=== PATIENT | female | born 2000 | race Caucasian/White ===

== ENCOUNTER 2021-02-21 18:41 | Inpatient (IN) ==
[2021-02-21 19:40] LABS: Basophils # (auto) 0.03 K/uL (0-0.2); Basophils % (auto) 0.4 %; Eosinophils # (auto) 0.13 K/uL (0-0.5); Eosinophils % (auto) 1.6 %; Hematocrit (blood only) 34.8 % (37-47); Hemoglobin 10.6 g/dL (12.0-16.0); Immature Granulocytes # (auto) 0.01 K/uL (0.00-0.02); Immature Granulocytes % (auto) 0.1 %; Lymphocytes # (auto) 2.74 K/uL (1.2-3.4); Lymphocytes % (auto) 34.3 %; Mean Corpuscular Hemoglobin 22.6 pg (25-34); Mean Corpuscular Hgb Conc 30.5 g/dL (32-36); Mean Corpuscular Volume 74.4 fL (80-100); Mean Platelet Volume 8.5 fL (7.4-10.4); Monocytes # (auto) 0.48 K/uL (0.11-0.59); Neutrophils % (auto) 57.6 %; Platelet Count 484 K/uL (130-400); RDW Coefficient of Variation 18.3 % (11.5-14.5); RDW Standard Deviation 50.1 fL (36.4-46.3); Red Blood Count 4.68 M/uL (4.2-5.4); White Blood Count 7.99 K/uL (4.8-10.8)
--- NOTE | 2021-02-21 20:18 | Emergency Department Note ---
History of Present Illness General Chief complaint: Mental Health Evaluation Stated complaint: DEPRESSION, SUICIDAL THOUGHTS Time Seen by Provider: 02/21/21 19:50 Source: patient Mode of arrival: ambulatory Limitations: no limitations History of Present Illness Provider complaint: Mental health evaluation This is a 20-year-old female presents emergency department for mental health evaluation. Patient states recent increased suicidal ideation, no definitive plan. Patient has a prior history of self-harm and SI. Patient denies hallucinations. Patient feels her other chronic health problems are stable including Galina's, migraines, and JRA. No recent change in medications. No recent illness. Pt seen during a time of high acuity and national emergency pandemic while wearing PPE. Home Medications Medication Instructions Recorded Confirmed Type amitriptyline 25 mg PO DAILY PRN 02/22/21 02/22/21 History etanercept 50 mg/mL (1 mL) 50 mg SUBCUT WK 02/22/21 02/22/21 History subcutaneous pen injector (Enbrel SureClick) levothyroxine 88 mcg tablet 88 mcg DAILY 02/22/21 02/22/21 History Allergies Allergy/AdvReac Type Severity Reaction Status Date / Time No Known Allergies Allergy Unverified 02/22/21 02:34 Past Med/Surg History Social History Smoking Status: Current every day smoker Tobacco Type: Cigarettes Feels Safe at Home: Yes Review of Systems A total of 10 systems reviewed and were otherwise negative All systems reviewed & are unremarkable except as noted in HPI & below Physical Exam Vital Signs Vital Signs - 24 hr 02/21/21 18:50 02/21/21 23:16 Temperature 36.9 C Temperature Source Temporal Artery Scan Pulse Rate 70 Pulse Rate [Finger] 56 L Respiratory Rate 16 Respiratory Effort / Characteristics Non-Labored Respiratory Depth Normal Blood Pressure 118/84 Blood Pressure [Left Arm] 104/57 L Blood Pressure Mean 95 Blood Pressure Mean [Left Arm] 72 Pulse Oximetry 99 99 Oxygen Delivery Method Room Air Room Air Sepsis Recent Fever Within 48 Hours No Sepsis New/Unexplained Change in Mental Status No Sepsis Action Taken by Nursing No Action Required GENERAL: alert, well appearing, well nourished, no distress, non-toxic EYE EXAM: normal conjunctiva, PERRL and EOM's grossly intact OROPHARYNX: no exudate, no erythema, lips, buccal mucosa, and tongue normal and mucous membranes are moist NECK: supple, no nuchal rigidity, no adenopathy, non-tender LUNGS: Clear to auscultation. Normal chest wall mechanics, no w/r/r HEART: no murmurs, S1 normal and S2 normal ABDOMEN: abdomen soft, non-tender, normo-active bowel sounds, no masses, no rebound or guarding. BACK: Back is symmetrical on inspection and there is no deformity, no midline tenderness, no CVA tenderness. SKIN: no rashes and no bruising UPPER EXTREMITIES: upper extremities are grossly normal. FROM, nml pulses b/l. LOWER EXTREMITIES: No pitting edema. FROM, nml pulses b/l. NEURO EXAM: Normal sensorium, cranial nerves II-XII grossly intact, normal speech, no gross weakness of arms, no gross weakness of legs. Gross sensation intact. Course Course 0032: Patient was seen and evaluated by Sarah wrapper caser for mental health evaluation. Patient agreeable with inpatient treatment at this time. Patient referred to [facility] pending Covid and urine drug screen. 0235: Patient evaluated by [facility] and accepted there. 201 signed by me. Medical Decision Making Differential Diagnosis Differential diagnoses considered include mood disorder, infection, hypoglycemia, electrolyte abnormalities, cardiac sources, intracerebral event, toxicologic, neurologic, as well as others. Medical Records Attestation: I reviewed the patient's medical records. Home Medications Current Medication List: was personally reviewed by me Laboratory Data Attestation: I reviewed the patient's lab results. Result diagrams: 02/21/21 19:20 02/21/21 19:20 Lab Results 02/21/21 02/21/21 02/21/21 Range/Units 19:20 19:20 19:20 WBC 7.99 (4.8-10.8) K/uL RBC 4.68 (4.2-5.4) M/uL Hgb 10.6 L (12.0-16.0) g/dL Hct 34.8 L (37-47) % MCV 74.4 L (80-100) fL MCH 22.6 L (25-34) pg MCHC 30.5 L (32-36) g/dL RDW Std Deviation 50.1 H (36.4-46.3) fL RDW Coeff of Abigail 18.3 H (11.5-14.5) % Plt Count 484 H (130-400) K/uL MPV 8.5 (7.4-10.4) fL Immature Gran % (Auto) 0.1 % Neut % (Auto) 57.6 % Lymph % (Auto) 34.3 % Winn % (Auto) 6.0 % Eos % (Auto) 1.6 % Baso % (Auto) 0.4 % Neut # (Auto) 4.60 (1.4-6.5) K/uL Lymph # (Auto) 2.74 (1.2-3.4) K/uL Winn # (Auto) 0.48 (0.11-0.59) K/uL Eos # (Auto) 0.13 (0-0.5) K/uL Baso # (Auto) 0.03 (0-0.2) K/uL Immature Gran # (Auto) 0.01 (0.00-0.02) K/uL Hypochromasia Present Microcytosis Present Ovalocytes 1+ Sodium 139 (136-145) mmol/L Potassium 3.7 (3.5-5.1) mmol/L Chloride 107 (98-107) mmol/L Carbon Dioxide 26 (21-32) mmol/L Anion Gap 7.0 (3-11) BUN 7 (7-18) mg/dl Creatinine 0.73 (0.6-1.2) mg/dl Est Cr Clr Drug Dosing 123.0 ml/min Est GFR ( Amer) 136.5 ml/min Est GFR (Non-Af Amer) 117.7 ml/min BUN/Creatinine Ratio 9.6 L (10-20) Glucose 85 (70-99) mg/dl Calcium 9.0 (8.5-10.1) mg/dl Total Bilirubin 0.7 (0.2-1) mg/dl AST 22 (15-37) U/L ALT 17 (12-78) U/L Alkaline Phosphatase 64 (45-117) U/L Total Protein 8.0 (6.4-8.2) gm/dl Albumin 4.0 (3.4-5.0) gm/dl Globulin 4.0 (2.5-4.0) gm/dl Albumin/Globulin Ratio 1.0 (0.9-2) TSH 0.320 (0.300-4.500) uIu/ml Urine Color Urine Appearance (Clear) Urine pH (4.5-7.5) Ur Specific Dola (1.000-1.030) Urine Protein (Negative) Urine Glucose (UA) (Negative) Urine Ketones (Negative) Urine Blood (Negative) Urine Nitrite (Negative) Urine Bilirubin (Negative) Urine Urobilinogen (Negative) Ur Leukocyte Esterase (Negative) Urine WBC (Auto) (0-5) /hpf Urine RBC (Auto) (0-4) /hpf U Hyaline Cast (Auto) (0-5) /lpf U Epithel Cells (Auto) (0-5) /lpf Urine Bacteria (Auto) (Negative) POC Ur Test (NEG) Salicylates < 1.7 L (2.8-20) mg/dl Urine Opiates Screen (Neg) Ur Methadone, Qual (Neg) Acetaminophen < 2 L (10-30) ug/ml Urine Barbiturates (Neg) Ur Phencyclidine (PCP) (Neg) U Amphetamin/Meth Scrn (Neg) MDMA (Ecstasy) Screen (Neg) U Benzodiazepines Scrn (Neg) Ur Cocaine Metabolite (Neg) U Marijuana (THC) Screen (Neg) Ethyl Alcohol mg/dL (0-3) mg/dl COVID-19 Eval Order SARS-CoV-2 (PCR) (Negative) 02/21/21 02/22/21 02/22/21 Range/Units 19:20 Unknown Unknown WBC (4.8-10.8) K/uL RBC (4.2-5.4) M/uL Hgb (12.0-16.0) g/dL Hct (37-47) % MCV (80-100) fL MCH (25-34) pg MCHC (32-36) g/dL RDW Std Deviation (36.4-46.3) fL RDW Coeff of Abigail (11.5-14.5) % Plt Count (130-400) K/uL MPV (7.4-10.4) fL Immature Gran % (Auto) % Neut % (Auto) % Lymph % (Auto) % Winn % (Auto) % Eos % (Auto) % Baso % (Auto) % Neut # (Auto) (1.4-6.5) K/uL Lymph # (Auto) (1.2-3.4) K/uL Winn # (Auto) (0.11-0.59) K/uL Eos # (Auto) (0-0.5) K/uL Baso # (Auto) (0-0.2) K/uL Immature Gran # (Auto) (0.00-0.02) K/uL Hypochromasia Microcytosis Ovalocytes Sodium (136-145) mmol/L Potassium (3.5-5.1) mmol/L Chloride (98-107) mmol/L Carbon Dioxide (21-32) mmol/L Anion Gap (3-11) BUN (7-18) mg/dl Creatinine (0.6-1.2) mg/dl Est Cr Clr Drug Dosing ml/min Est GFR ( Amer) ml/min Est GFR (Non-Af Amer) ml/min BUN/Creatinine Ratio (10-20) Glucose (70-99) mg/dl Calcium (8.5-10.1) mg/dl Total Bilirubin (0.2-1) mg/dl AST (15-37) U/L ALT (12-78) U/L Alkaline Phosphatase (45-117) U/L Total Protein (6.4-8.2) gm/dl Albumin (3.4-5.0) gm/dl Globulin (2.5-4.0) gm/dl Albumin/Globulin Ratio (0.9-2) TSH (0.300-4.500) uIu/ml Urine Color Yellow Urine Appearance Clear (Clear) Urine pH 5.5 (4.5-7.5) Ur Specific Dola 1.010 (1.000-1.030) Urine Protein Negative (Negative) Urine Glucose (UA) Negative (Negative) Urine Ketones Negative (Negative) Urine Blood Negative (Negative) Urine Nitrite Negative (Negative) Urine Bilirubin Negative (Negative) Urine Urobilinogen Negative (Negative) Ur Leukocyte Esterase Trace H (Negative) Urine WBC (Auto) 5-10 H (0-5) /hpf Urine RBC (Auto) 0-4 (0-4) /hpf U Hyaline Cast (Auto) 1-5 (0-5) /lpf U Epithel Cells (Auto) 20-30 H (0-5) /lpf Urine Bacteria (Auto) 1+ H (Negative) POC Ur Test (NEG) Salicylates (2.8-20) mg/dl Urine Opiates Screen Neg (Neg) Ur Methadone, Qual Neg (Neg) Acetaminophen (10-30) ug/ml Urine Barbiturates Neg (Neg) Ur Phencyclidine (PCP) Neg (Neg) U Amphetamin/Meth Scrn Neg (Neg) MDMA (Ecstasy) Screen Neg (Neg) U Benzodiazepines Scrn Neg (Neg) Ur Cocaine Metabolite Neg (Neg) U Marijuana (THC) Screen Pos H (Neg) Ethyl Alcohol mg/dL < 3.0 (0-3) mg/dl COVID-19 Eval Order SARS-CoV-2 (PCR) (Negative) 02/22/21 02/22/21 02/22/21 Range/Units Unknown Unknown Unknown WBC (4.8-10.8) K/uL RBC (4.2-5.4) M/uL Hgb (12.0-16.0) g/dL Hct (37-47) % MCV (80-100) fL MCH (25-34) pg MCHC (32-36) g/dL RDW Std Deviation (36.4-46.3) fL RDW Coeff of Abigail (11.5-14.5) % Plt Count (130-400) K/uL MPV (7.4-10.4) fL Immature Gran % (Auto) % Neut % (Auto) % Lymph % (Auto) % Winn % (Auto) % Eos % (Auto) % Baso % (Auto) % Neut # (Auto) (1.4-6.5) K/uL Lymph # (Auto) (1.2-3.4) K/uL Winn # (Auto) (0.11-0.59) K/uL Eos # (Auto) (0-0.5) K/uL Baso # (Auto) (0-0.2) K/uL Immature Gran # (Auto) (0.00-0.02) K/uL Hypochromasia Microcytosis Ovalocytes Sodium (136-145) mmol/L Potassium (3.5-5.1) mmol/L Chloride (98-107) mmol/L Carbon Dioxide (21-32) mmol/L Anion Gap (3-11) BUN (7-18) mg/dl Creatinine (0.6-1.2) mg/dl Est Cr Clr Drug Dosing ml/min Est GFR ( Amer) ml/min Est GFR (Non-Af Amer) ml/min BUN/Creatinine Ratio (10-20) Glucose (70-99) mg/dl Calcium (8.5-10.1) mg/dl Total Bilirubin (0.2-1) mg/dl AST (15-37) U/L ALT (12-78) U/L Alkaline Phosphatase (45-117) U/L Total Protein (6.4-8.2) gm/dl Albumin (3.4-5.0) gm/dl Globulin (2.5-4.0) gm/dl Albumin/Globulin Ratio (0.9-2) TSH (0.300-4.500) uIu/ml Urine Color Urine Appearance (Clear) Urine pH (4.5-7.5) Ur Specific Dola (1.000-1.030) Urine Protein (Negative) Urine Glucose (UA) (Negative) Urine Ketones (Negative) Urine Blood (Negative) Urine Nitrite (Negative) Urine Bilirubin (Negative) Urine Urobilinogen (Negative) Ur Leukocyte Esterase (Negative) Urine WBC (Auto) (0-5) /hpf Urine RBC (Auto) (0-4) /hpf U Hyaline Cast (Auto) (0-5) /lpf U Epithel Cells (Auto) (0-5) /lpf Urine Bacteria (Auto) (Negative) POC Ur Test NEG (NEG) Salicylates (2.8-20) mg/dl Urine Opiates Screen (Neg) Ur Methadone, Qual (Neg) Acetaminophen (10-30) ug/ml Urine Barbiturates (Neg) Ur Phencyclidine (PCP) (Neg) U Amphetamin/Meth Scrn (Neg) MDMA (Ecstasy) Screen (Neg) U Benzodiazepines Scrn (Neg) Ur Cocaine Metabolite (Neg) U Marijuana (THC) Screen (Neg) Ethyl Alcohol mg/dL (0-3) mg/dl COVID-19 Eval Order Covid19 at [facility] SARS-CoV-2 (PCR) NEGATIVE (Negative) MDM Narrative Patient presents for mental health evaluation. Patient afebrile and hemodynamically stable. Patient admits to depression duration. Labs reassu ring, anemia was noted, however no prior results in EMR for comparison. No orthostatic symptoms and patient without active bleeding. I suspect likely chronic and can be followed up as an outpatient. Patient seen and evaluated by case management, referred to [facility] Patient [facility] for additional inpatient evaluation. Patient signed in voluntarily. Patient admits to thoughts of self-harm and suicidal ideation although no definitive plan at this time. I do feel patient would benefit from inpatient treatment at this time. Impression & Plan Depression, Suicidal ideation, Anemia Discharge Plan Visit Data Chief Complaint: Mental Health Evaluation Stated Complaint: DEPRESSION, SUICIDAL THOUGHTS ED Provider: Keshia Mann Discharge Problem: Depression, Suicidal ideation, Anemia Patient Disposition: Admitted As Inpatient Forms Stand Alone Forms: My [facility], Suicide Prevention Resources Prescriptions Prescriptions: No Action levothyroxine 88 mcg tablet 88 mcg DAILY RF: 0 Enbrel SureClick 50 mg/mL (1 mL) pen injector 50 mg SUBCUT WK RF: 0 amitriptyline 25 MG tablet 25 mg PO DAILY PRN (Reason: Migraine Headache) RF: 0 Referrals Referrals: PCP,NO [Physician] - Discharge Problem: Depression Qualifiers: Depression Type: unspecified Qualified Code(s): F32.A - Depression, unspecified Anemia Qualifiers: Anemia type: unspecified type Qualified Code(s): D64.9 - Anemia, unspecified
[2021-02-21 20:28] LABS: Acetaminophen < 2 ug/ml (10-30); BUN Creatinine Ratio 9.6 (10-20); Est GFR (African American) 136.5 ml/min; Est GFR (Non-African American) 117.7 ml/min; Potassium 3.7 mmol/L (3.5-5.1); Salicylate < 1.7 mg/dl (2.8-20)
[2021-02-21 20:38] LABS: Bilirubin,Total 0.7 mg/dl (0.2-1); Thyroid Stimulating Hormone 0.32 uIu/ml (0.300-4.500)
[2021-02-21 20:47] LABS: Hypochromasia Present; Microcytosis Present; Ovalocytes 1+
[2021-02-22 00:43] LABS: Appearance Urine Clear (Clear); Bacteria Urine Automated 1+ (Negative); Bilirubin Urine Negative (Negative); Blood Urine Negative (Negative); Color Urine Yellow; Epithelial Cell Urine Auto 20-30 /lpf (0-5); Glucose Urine UA Negative (Negative); Ketones Urine Negative (Negative); Leukocyte Esterase Urine Trace (Negative); Nitrite Urine Negative (Negative); Protein Urine Negative (Negative); RBC Urine Automated 0-4 /hpf (0-4); Urobilinogen Urine Negative (Negative); pH Urine 5.5 (4.5-7.5)
[2021-02-22 01:06] LABS: Amphetamines+Metham, Urine Neg (Neg); Barbiturates, Urine Neg (Neg); Benzodiazepine, Urine Neg (Neg); Cocaine, Urine Neg (Neg); MDMA (Ecstacy), Urine Neg (Neg); Methadone, Urine Neg (Neg); Opiate, Urine Neg (Neg); Phencyclidine, Urine Neg (Neg)
[2021-02-22] MEDS ORDERED: BISMUTH SUBSALICYLATE LIQD 236 ML PO PRN (02:34)
[2021-02-22] MEDS ORDERED: SODIUM CHLORIDE 0.65% NA SOLN 45 ML (OCEAN) PRN (02:34)
[2021-02-22] MEDS ORDERED: hydrOXYzine HCl 25 MG TAB PO PRN (02:34)
[2021-02-22] MEDS ORDERED: MAGNESIUM HYDROXIDE SUSP 30 ML UDC PO PRN (02:34)
[2021-02-22] MEDS ORDERED: ALUMINUM/MAGNESIUM SUSP 30 ML UDC PO PRN (02:34)
[2021-02-22] MEDS ORDERED: ACETAMINOPHEN 325 MG TAB PO PRN (02:34)
[2021-02-22] MEDS: LEVOTHYROXINE SODIUM 88 MCG TABLET PO SCH (08:01)
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
[2021-02-22] MEDS ORDERED: AMITRIPTYLINE HCL 25 MG TAB PO PRN (12:54)
[2021-02-22] MEDS ORDERED: LEVOTHYROXINE SODIUM 88 MCG TABLET PO SCH (13:00)
[2021-02-22] MEDS ORDERED: NEOMYCIN/POLYMYX/BACITR OINT 15 GM TUBE EXT PRN (15:51)
[2021-02-22] MEDS: hydrOXYzine HCl 25 MG TAB PO PRN (20:04)
[2021-02-23] MEDS: LEVOTHYROXINE SODIUM 88 MCG TABLET PO SCH (08:33)
[2021-02-23] MEDS: FLUoxetine HCL 10 MG CAP PO SCH (14:05)
--- NOTE | 2021-02-23 15:24 | Psychiatric Progress Note ---
Date of Service February 23, 2021 Impression / Recommendations Impression Ese is a 20-year-old female with a remote hx of SIB presented to ED with 2 weeks of worsening mood and rather persistent SI. She signed a 72 hour notice upon arrival to the unit. 02/23/21: remains depressive, refusing to rescind 72 hour notice (1) Depression: (2) Suicidal ideation: (3) Anemia: 02/23/21: Needs family meeting and safety planning. Started Prozac 10 mg po daily. 02/22/21: The patient was admitted to the [facility] ([facility] mental health unit) on q15 min checks (behavioral with suicide precautions) for safety. The patient will participate in group, recreational, and milieu therapies and will be offered additional individual and family sessions as clinically appropriate. Risks/benefits/alternatives reviewed re: antidepressants for the treatment of depression and/or anxiety. Discussion included but was not limited to FDA warnings re: suicidality in adolescents and young adults. The patient is considering a trial of Prozac. Reviewed risk of serotonin syndrome in combo with TCA and she again confirms she uses that medication as a prn only. Inventory Assets Strengths: traditionally good student, relationship with sister, brother is local Needs: outpatient providers, meeting with father Risk Factors Assessment : Yes Do You Have Access To A Gun?: No Health Problems: Yes Substance Use Disorders: No Previous Attempt: No Family History of Suicide: No Previous Psychiatric Hospitalization: No Protective Factors Assessment Employed: No Supportive Family: Yes Interval History Identifying Information ESE GARCIA is a 20-year-old F, [employer] from [facility], has a history of SIB, and was admitted on 02/22/21 02:34 on a 201 voluntary commitment for suicidal ideation. Chief Complaint "so it's just depression, that's all it is?". Review of Systems Sleep Information Total Hours of Sleep: 8.25 Sleep Comments: pt with poor sleep due to late admission. pt on q-15 minute checks Meal Information Percent Meal Consumed - Breakfast: 20 Percent Meal Consumed - Lunch: 20 Percent Meal Consumed - Dinner: 60 Subjective Subjective Patient was seen & assessed and interval progress reviewed with treatment team. Patient does not plan to rescind her 72 hour notice despite appearing quite depressed and tearful. She has spoken with her father and is willing to involve him in a meeting as "I'm not bringing my roommates into this". She is now agreeable to a trial of an SSRI. Physical Exam Psychiatric Orientation: alert and oriented x 3 Apperance: appropriately dressed and appropriately groomed Eye Contact: good eye contact Motor Behavior: no abnormal motor movements Speech: normal rate/rhythm/volume of speech Affect: + depressed affect Mood: + depressed mood Thought Process: goal directed thought process Thought Content: reality based without delusions Suicidal Thoughts: denies suicidal thoughts Homicidal Thoughts: denies homicidal thoughts Hallucinations: no auditory hallucinations and no visual hallucinations Cognition: attention grossly intact and language grossly intact Estimated Intelligence: consistent with education level Insight: + limited insight Judgement: + limited judgement Vital Signs (Past 24 Hours) Last Vital Signs Temp 36.5 C 02/23/21 06:00 Pulse 66 02/23/21 06:32 Resp 16 02/23/21 06:00 BP 95/62 L 02/23/21 06:32 Pulse Ox 99 02/21/21 23:16 Results & Data ([facility]) Current Inpatient Medications Current Inpatient Medications: Current Inpatient Medications Acetaminophen (Acetaminophen 325 Mg Tab) 650 mg PO Q4H PRN PRN Reason: Headache or Minor Fever Stop: 03/24/21 02:33 Al Hydrox/Mg Hydrox/Simethicone (Aluminum/Magnesium Susp 30 Ml Udc) 30 ml PO Q4H PRN PRN Reason: GI Upset Stop: 03/24/21 02:33 Amitriptyline HCl (Amitriptyline Hcl 25 Mg Tab) 25 mg PO DAILY PRN PRN Reason: Migraine Headache Stop: 03/24/21 12:53 Bismuth Subsalicylate (Bismuth Subsalicylate Liqd 236 Ml) 15 ml PO PRN PRN PRN Reason: Loose Stool Stop: 03/24/21 02:33 Fluoxetine HCl (Fluoxetine Hcl 10 Mg Cap) 10 mg PO QAM SHAUNA Stop: 03/25/21 11:59 Last Admin: 02/23/21 14:05 Dose: 10 mg Documented by: Hydroxyzine HCl (Hydroxyzine Hcl 25 Mg Tab) 50 mg PO HSZ PRN PRN Reason: Insomnia Stop: 03/24/21 02:33 Last Admin: 02/22/21 20:04 Dose: 50 mg Documented by: Hydroxyzine HCl (Hydroxyzine Hcl 25 Mg Tab) 25 mg PO Q4H PRN PRN Reason: Anxiety Stop: 03/24/21 02:33 Levothyroxine Sodium (Levothyroxine Sodium 88 Mcg Tablet) 88 mcg PO DAILYBB SHAUNA Stop: 03/24/21 07:59 Last Admin: 02/23/21 08:33 Dose: 88 mcg Documented by: Magnesium Hydroxide (Magnesium Hydroxide Susp 30 Ml Udc) 30 ml PO DAILY PRN PRN Reason: Constipation Stop: 03/24/21 02:33 Neomycin/Polymyxin/Bacitracin (Neomycin/Polymyx/Bacitr Oint 15 Gm Tube) 1 appln EXT BID PRN PRN Reason: affected skin (scratch on arm) Stop: 03/24/21 15:50 Sodium Chloride (Sodium Chloride 0.65% Na Soln 45 Ml ([place])) 1 - 2 sprays NA PRN PRN PRN Reason: Nasal Dryness/Congestion Stop: 03/24/21 02:33 Mental Health & Subst Abuse Tx Therapist Name of Therapist: [facility] The[facility]ist's Time of Therapist Appointment: They emailed you paperwork to complete prior to scheduling an appt Therapy Appointment Comment: [address] [facility], [place] [address] Archival Studies Professor Name of Archival Studies Professor: None Post Discharge Appointments Primary Care Physician Name Of Family Doctor: [facility] - Dr. Pranay Sheppard Primary Care Date of Appointment with PCP: 03/06/21 Time of Appointment with PCP: 5:30 p.m. Provider Appointment Comment: [address] [address] [place] [id number] Other #1: Name of Aftercare Appointment: [facility] Phone Number of Aftercare Appointment: [phone] Date of Aftercare Appointment: 02/26/21 Time of Aftercare Appointment: 2:30 p.m. Aftercare Appointment Comment: [email or web address] #[email or web address]: Name of Aftercare Appointment: [facility] Phone Number of Aftercare Appointment: [phone] Aftercare Appointment Comment: Please follow up if needed for therapy/crisis services Contact Information Discharge Discharge Address: [address] [place] [address] [place] [id number] (1) Depression Depression Type: unspecified Qualified Code(s): F32.A - Depression, unspecified (2) Anemia Anemia type: unspecified type Qualified Code(s): D64.9 - Anemia, unspecified
[2021-02-23] MEDS: hydrOXYzine HCl 25 MG TAB PO PRN ×2 (20:43→21:42)
[2021-02-24] MEDS: LEVOTHYROXINE SODIUM 88 MCG TABLET PO SCH (07:42)
[2021-02-24] MEDS: FLUoxetine HCL 10 MG CAP PO SCH (07:42)
[2021-02-24 08:31] LABS: Marijuana Quant, GCMS Urine 531 ng/mL (<5)
--- NOTE | 2021-02-24 13:25 | Discharge Summary ---
Date of Service February 24, 2021 History of Present Illness The patient was directed to the ED after calling the [facility] Crisis Line for suicidal ideation. She did not report a specific plan in the ED but told CM that she has recurrent thoughts about ending her life, even waking up hopeless and helpless. It has been several years since she cut superficially to relieve stress. Stressors include not doing well in her classes and she hasn't had the energy or interest to go to class in past week. Staying home at the apartment is not a relaxing environment as she has a roommate that monopolizes the space and is quite rude. This is the patient's first semester as main campus having attended [employer] and living in an apartment for 2 years. She reports onset of mood shift 02/07 as her younger sister visited on 02/09/21 from [place] where she is attending school and was recently hospitalized for psychiatric reasons. She has felt more anxious during that time. She denies any hx of erickson or hypomania. Sleep and appetite increased though she denies any history of seasonal mood changes. She denies any intent or plan to harm herself but states that she is very anxious about the suicidal thoughts and how pervasive they are. "I just can't snap out of this." Physical Exam Vital Signs (Past 24 Hours) Last Vital Signs Temp 36.6 C 02/24/21 06:00 Pulse 67 02/24/21 06:33 Resp 14 02/24/21 06:00 BP 96/65 L 02/24/21 06:33 Pulse Ox 99 02/21/21 23:16 See admission H&P and DOD summary. Principal Diagnosis Major Depressive Disorder Psychiatric Data See daily stay summary. In short, safety was maintained and the patient was cooperative with care. Medication changes included initiation of fluoxetine 10mg qd and she tolerated this well. If she continues to tolerate this dose then would recommend titration to 20mg qd in the next 2-4 weeks. After that can increase further to 40mg qd after another 4 weeks if symptoms persist. A family session was held and safety plan was completed prior to discharge. She submitted a 72 hour request which was due to at 02/25 at 3am so discharge was planned for late afternoon on 02/24/21. Ideally she would have remained for a few more days for further titration of fluoxetine and further development of coping skills but it was not felt that she met criteria for conversion to 302 status as she consistently denied SI. Day of Discharge Assessment Today the patient voices readiness for discharge. She is eager to return to school as she feels this is the biggest stressor contributing to her anxiety and depression. Discussed that my recommendation would be that she remains in the hospital for a few more days to further titrate the fluoxetine dose and develop more coping skills but she feels that remaining in the hospital will not help anything and she does not meet criteria for 302 status. She endorses some ongoing low mood but feels that her most significant stressor is school and that getting back to her coursework is what she feels will be most helpful for this. Reviewed that she can always return to the ED or call 911 should SI re-emerge or symptoms worsen again after discharge. She notes some improvement in mood and waylon thoughts to harm self or others. Thoughts remain organized. There is no evidence of psychosis. They agree to take mediations as prescribed and keep follow-up appointments. They are stable for discharge to outpatient level of care. They are not deemed to be at imminent risk of harm to self or others. They are aware of emergency and crisis services. Knows to call 911 or go to nearest emergency care center if in a crisis which cannot be handled as an outpatient. Transition of Care Transition Of Care Record: was reviewed with the patient Advance Directives Advance Directives Information Provided: Yes Advance Directives: No Mental Health Advance Directive: No Living Will: No Power of Surfacer Operator: No Advance Directives Reason:: Declines as Mental Health Visit. Risk Factors Assessment : Yes Do You Have Access To A Gun?: No Health Problems: Yes Substance Use Disorders: No Previous Attempt: No Family History of Suicide: No Previous Psychiatric Hospitalization: No Hopelessness: No Protective Factors Assessment Employed: No Stable Relationships: Yes Supportive Family: Yes Good Rapport with Provider: Yes Discharge Data Lab Results 02/21/21 02/21/21 02/21/21 19:20 19:20 19:20 WBC 7.99 RBC 4.68 Hgb 10.6 L Hct 34.8 L MCV 74.4 L MCH 22.6 L MCHC 30.5 L RDW Std Deviation 50.1 H RDW Coeff of Abigail 18.3 H Plt Count 484 H MPV 8.5 Immature Gran % (Auto) 0.1 Neut % (Auto) 57.6 Lymph % (Auto) 34.3 Yell % (Auto) 6.0 Eos % (Auto) 1.6 Baso % (Auto) 0.4 Neut # (Auto) 4.60 Lymph # (Auto) 2.74 Yell # (Auto) 0.48 Eos # (Auto) 0.13 Baso # (Auto) 0.03 Immature Gran # (Auto) 0.01 Hypochromasia Present Microcytosis Present Ovalocytes 1+ Sodium 139 Potassium 3.7 Chloride 107 Carbon Dioxide 26 Anion Gap 7.0 BUN 7 Creatinine 0.73 Est Cr Clr Drug Dosing 123.0 Est GFR ( Amer) 136.5 Est GFR (Non-Af Amer) 117.7 BUN/Creatinine Ratio 9.6 L Glucose 85 Calcium 9.0 Total Bilirubin 0.7 AST 22 ALT 17 Alkaline Phosphatase 64 Total Protein 8.0 Albumin 4.0 Globulin 4.0 Albumin/Globulin Ratio 1.0 TSH 0.320 Urine Color Urine Appearance Urine pH Ur Specific Teachey Urine Protein Urine Glucose (UA) Urine Ketones Urine Blood Urine Nitrite Urine Bilirubin Urine Urobilinogen Ur Leukocyte Esterase Urine WBC (Auto) Urine RBC (Auto) U Hyaline Cast (Auto) U Epithel Cells (Auto) Urine Bacteria (Auto) POC Ur Test Salicylates < 1.7 L Urine Opiates Screen Ur Methadone, Qual Acetaminophen < 2 L Urine Barbiturates Ur Phencyclidine (PCP) U Amphetamin/Meth Scrn MDMA (Ecstasy) Screen U Benzodiazepines Scrn Ur Cocaine Metabolite U Marijuana (THC) Screen U Marijuana THC Carboxy Drug Screen Comment Ethyl Alcohol mg/dL COVID-19 Eval Order SARS-CoV-2 (PCR) 02/21/21 02/22/21 02/22/21 19:20 Unknown Unknown WBC RBC Hgb Hct MCV MCH MCHC RDW Std Deviation RDW Coeff of Abigail Plt Count MPV Immature Gran % (Auto) Neut % (Auto) Lymph % (Auto) Yell % (Auto) Eos % (Auto) Baso % (Auto) Neut # (Auto) Lymph # (Auto) Yell # (Auto) Eos # (Auto) Baso # (Auto) Immature Gran # (Auto) Hypochromasia Microcytosis Ovalocytes Sodium Potassium Chloride Carbon Dioxide Anion Gap BUN Creatinine Est Cr Clr Drug Dosing Est GFR ( Amer) Est GFR (Non-Af Amer) BUN/Creatinine Ratio Glucose Calcium Total Bilirubin AST ALT Alkaline Phosphatase Total Protein Albumin Globulin Albumin/Globulin Ratio TSH Urine Color Yellow Urine Appearance Clear Urine pH 5.5 Ur Specific Teachey 1.010 Urine Protein Negative Urine Glucose (UA) Negative Urine Ketones Negative Urine Blood Negative Urine Nitrite Negative Urine Bilirubin Negative Urine Urobilinogen Negative Ur Leukocyte Esterase Trace H Urine WBC (Auto) 5-10 H Urine RBC (Auto) 0-4 U Hyaline Cast (Auto) 1-5 U Epithel Cells (Auto) 20-30 H Urine Bacteria (Auto) 1+ H POC Ur Test Salicylates Urine Opiates Screen Neg Ur Methadone, Qual Neg Acetaminophen Urine Barbiturates Neg Ur Phencyclidine (PCP) Neg U Amphetamin/Meth Scrn Neg MDMA (Ecstasy) Screen Neg U Benzodiazepines Scrn Neg Ur Cocaine Metabolite Neg U Marijuana (THC) Screen Pos H U Marijuana THC Carboxy Drug Screen Comment Ethyl Alcohol mg/dL < 3.0 COVID-19 Eval Order SARS-CoV-2 (PCR) 02/22/21 02/22/21 02/22/21 Unknown Unknown Unknown WBC RBC Hgb Hct MCV MCH MCHC RDW Std Deviation RDW Coeff of Abigail Plt Count MPV Immature Gran % (Auto) Neut % (Auto) Lymph % (Auto) Yell % (Auto) Eos % (Auto) Baso % (Auto) Neut # (Auto) Lymph # (Auto) Yell # (Auto) Eos # (Auto) Baso # (Auto) Immature Gran # (Auto) Hypochromasia Microcytosis Ovalocytes Sodium Potassium Chloride Carbon Dioxide Anion Gap BUN Creatinine Est Cr Clr Drug Dosing Est GFR ( Amer) Est GFR (Non-Af Amer) BUN/Creatinine Ratio Glucose Calcium Total Bilirubin AST ALT Alkaline Phosphatase Total Protein Albumin Globulin Albumin/Globulin Ratio TSH Urine Color Urine Appearance Urine pH Ur Specific [place]y Urine Protein Urine Glucose (UA) Urine Ketones Urine Blood Urine Nitrite Urine Bilirubin Urine Urobilinogen Ur Leukocyte Esterase Urine WBC (Auto) Urine RBC (Auto) U Hyaline Cast (Auto) U Epithel Cells (Auto) Urine Bacteria (Auto) POC Ur Test NEG Salicylates Urine Opiates Screen Ur Methadone, Qual Acetaminophen Urine Barbiturates Ur Phencyclidine (PCP) U Amphetamin/Meth Scrn MDMA (Ecstasy) Screen U Benzodiazepines Scrn Ur Cocaine Metabolite U Marijuana (THC) Screen U Marijuana THC Carboxy Drug Screen Comment Ethyl Alcohol mg/dL COVID-19 Eval Order Covid19 at [facility] SARS-CoV-2 (PCR) NEGATIVE 02/22/21 Unknown WBC RBC Hgb Hct MCV MCH MCHC RDW Std Deviation RDW Coeff of Abigail Plt Count MPV Immature Gran % (Auto) Neut % (Auto) Lymph % (Auto) Yell % (Auto) Eos % (Auto) Baso % (Auto) Neut # (Auto) Lymph # (Auto) Yell # (Auto) Eos # (Auto) Baso # (Auto) Immature Gran # (Auto) Hypochromasia Microcytosis Ovalocytes Sodium Potassium Chloride Carbon Dioxide Anion Gap BUN Creatinine Est Cr Clr Drug Dosing Est GFR ( Amer) Est GFR (Non-Af Amer) BUN/Creatinine Ratio Glucose Calcium Total Bilirubin AST ALT Alkaline Phosphatase Total Protein Albumin Globulin Albumin/Globulin Ratio TSH Urine Color Urine Appearance Urine pH Ur Specific Te[place]y Urine Protein Urine Glucose (UA) Urine Ketones Urine Blood Urine Nitrite Urine Bilirubin Urine Urobilinogen Ur Leukocyte Esterase Urine WBC (Auto) Urine RBC (Auto) U Hyaline Cast (Auto) U Epithel Cells (Auto) Urine Bacteria (Auto) POC Ur Test Salicylates Urine Opiates Screen Ur Methadone, Qual Acetaminophen Urine Barbiturates Ur Phencyclidine (PCP) U Amphetamin/Meth Scrn MDMA (Ecstasy) Screen U Benzodiazepines Scrn Ur Cocaine Metabolite U Marijuana (THC) Screen U Marijuana THC Carboxy 531 H Drug Screen Comment SEE NOTE Ethyl Alcohol mg/dL COVID-19 Eval Order SARS-CoV-2 (PCR) Hospital Course (1) Depression: (2) Suicidal ideation: (3) Anemia: 02/24/21: Tolerating Prozac without any side effects. Discussed recommendations regarding titration options with her PCP after discharge. She agrees to start therapy after discharge and understands that she will have meeting with student advocacy which she feels will help her feel better able to manage the last few weeks of classes before winter. 02/23/21: Needs family meeting and safety planning. Started Prozac 10 mg po daily. 02/22/21: The patient was admitted to the [facility] ([facility] mental health unit) on q15 min checks (behavioral with suicide precautions) for safety. The patient will participate in group, recreational, and milieu therapies and will be offered additional individual and family sessions as clinically appropriate. Risks/benefits/alternatives reviewed re: antidepressants for the treatment of depression and/or anxiety. Discussion included but was not limited to FDA warnings re: suicidality in adolescents and young adults. The patient is considering a trial of Prozac. Reviewed risk of serotonin syndrome in combo with TCA and she again confirms she uses that medication as a prn only. Mental Health & Subst Abuse Tx Therapist Name of Therapist: [facility] Therapist's Time of Therapist Appointment: They emailed you paperwork to complete prior to scheduling an appt Therapy Appointment Comment: [address] [place] [facility] [place] [address] Printing Plate Maker Name of Printing Plate Maker: None Post Discharge Appointments Primary Care Physician Name Of Family Doctor: [facility] - Dr. Pranay Sheppard Primary [facility] Date of Appointment with PCP: 03/06/21 Time of Appointment with PCP: 5:30 p.m. Provider App[facility]ment [facility] [address] [place] [address] Other #1: Name of Aftercare Appointment: [facility] Phone Number of Aftercare Appointment: [phone] Date of Aftercare Appointment: 02/26/21 Time of Aftercare Appointment: 2:30 p.m. Aftercare Appointment Comment: [email or web address] #[email or web address]: Name of Aftercare Appointment: [facility] Phone Number of Aftercare Appointment: [phone] Aftercare Appointment Comment: Please follow up if needed for therapy/crisis services Contact Information Discharge Discharge Address: [address] [place] [address] [place] [address] Discharge Plan Discharge Items Patient Disposition: Home - Self-Care Reason For Visit: DEPRESSIVE D/O Discharge Diagnosis: Major Depressive Disorder Activity: Resume your previous activity Non-emergency contact: Primary Care Provider and Therapist Call non-emergency contact if: you have any medication questions and your symptoms worsen Follow-up/Referrals: [facility] [Primary Care Provider] - Diet: Regular Addtl Attending Provider Instructions: SPECIAL CARE INSTRUCTIONS: 1. Follow through with your scheduled aftercare appointments. If unable to keep an appointment, please call to reschedule. 2. Take your medication only as prescribed. Medication should not be changed or stopped without the approval of your doctor. In the event of worsening symptoms or concerns about side effects, contact your doctor immediately. 3. Utilize new healthy coping skills, anger management skills, and stress management skills learned during your hospitalization. Journal feelings and process them with a support person. Identify stressors or situations that may result in relapse, deterioration or inappropriate behaviors and develop a plan to deal with those issues. 4. If your coping skills are ineffective and you are in crisis, contact your outpatient providers for direction. If unable to reach your providers, please call the [facility] CRISIS LINE AT , go to the [facility] walk-in center at [address], [address], [place], or go to the closest Emergency Room. 5. Avoid alcohol and un-prescribed drugs. 6. You have been provided with the Mental Health Advance Directives Pamphlet for your review. 7. Your condition is stable for discharge to outpatient level of care, but recovery is an ongoing process. Ifthoughts to harm yourself or others return, follow the safety plan developed during your stay. Planning for a safe return home includes securing weapons. Our treatment team recommends weaponsbe removed from the home until your outpatient provider reassesses your progress. In rare cases where the items themselvescannot be removed, guns and ammunitionshould be secured separatelyand keys stored by a reliable personoutside of the home. If you were admitted on an involuntary commitment, the police or other legal authorities may be involved in this process. AFTERCARE APPOINTMENTS: * Please call your insurance company prior to your scheduled appointment to confirm your aftercare providers are covered. Take your insurance information to your appointments. WHO TO CALL AND WHEN: Medical Emergencies: For questions or emergencies related to your hospital stay, please contact the Inpatient Behavioral Health Unit at [phone]. A seaman officer is on-call 04/11 for the Behavioral Health Unit for emergencies At any time you feel your situation is an emergency, you may also call 911 immediately. Pending Studies at Discharge: No Stand-Alone Forms: My [facility] Medications and DC Order Prescriptions: New fluoxetine 10 mg Capsule 10 mg PO QAM 30 Days Qty: 30 RF: 0 Continued levothyroxine 88 mcg tablet 88 mcg DAILY RF: 0 Enbrel SureClick 50 mg/mL (1 mL) pen injector 50 mg SUBCUT WK RF: 0 amitriptyline 25 MG tablet 25 mg PO DAILY PRN (Reason: Migraine Headache) RF: 0 Discharge Orders: Discharge Order (Routine); Ordered 02/24/21 Ordered By: Elena Braun/Other Patient Handouts: Depression: Tips to Help Yourself Admission Data Admit Date/Time: 02/22/21 02:34 Attending Provider: Polina Lira Admit Provider: Polina Lira Primary Care Provider: [facility] Other Interventions: Discharge Summary Assessment (RN) Last Done: 02/24/21 13:25 PSY Interdisciplinary Discharge Planning Last Done: 02/23/21 14:31 Coding Level of Care Code 68801 D/C day mgmt > 30 min Diagnoses Depression F32.A Depression Type: unspecified Suicidal ideation R45.851 Anemia D64.9 Anemia type: unspecified type Time Spent (min) 45
== END 2021-02-24 16:10 | disposition home or self-care (01) | DRG 881 ==
LOC: ED 18:41 → 3S 02-22 02:34